=== PATIENT | female | born 1950 | race Caucasian/White ===

== ENCOUNTER 2024-02-13 22:43 | Emergency (ER) | payer MEDICARE, SELFPAY ==
[2024-02-13 22:46] VITALS: BP 169/86
[2024-02-13 23:32] VITALS: BP 171/86
[2024-02-14] VITALS: BP 158/84
[2024-02-14] MEDS: ZOFRAN 4 MG IV (00:01)
[2024-02-14] MEDS: NSS 1000 IV (00:03)
[2024-02-14 00:08] LABS: % Basophils 0.5 % (0-2); % Eosinophils 2.1 % (0-6); % Immature Granulocytes 0.3 % (0-0.5); % Monocytes 8.9 % (1.7-9.3); % Neutrophils 75.2 % (42.2-75.2); Absolute Eosinophils 0.1 10^3/uL (0-0.7); Absolute Lymphocytes 0.8 10^3/uL (1.2-3.4); Absolute Monocytes 0.6 10^3/uL (0.1-0.6); Absolute Neutrophils 4.8 10^3/uL (1.4-6.5); Hematocrit 29.8 % (37.0-47.0); Hemoglobin 10.1 g/dL (12.0-16.0); Mean Corp Hgb Conc. 33.9 g/dL (33.0-37.0); Mean Corpuscular Hgb 29.9 pg (27.0-31.0); Mean Corpuscular Volume 88.2 fL (81.0-99.0); Nucleated Red Blood Cells % 0 %; Platelet Count 164 10^3/uL (130-400); Red Blood Cell Count 3.38 10^6/uL (4.20-5.40); Red Cell Dist. Width 13.3 % (11.5-14.5); White Blood Cell Count 6.3 10^3/uL (4.8-10.8)
--- NOTE | 2024-02-14 00:18 | ED.GENMED ---
History of Present Illness
General
Chief Complaint: Abdominal Symptoms
Source: patient and family (Daughter)
Exam Limitations: none
Time Seen by Provider: 02/13/24 23:34
History of Present Illness
History of Present Illness:
3 to 4 days of myalgias aches. Flu like symptoms. This evening around 6 PM had recurrent episodes of vomiting which prompted ER evaluation. No abdominal pain. No unusual headache or other complaints.
Past History
Past History
ED Past Medical History: Negative Asthma, HTN, Hypercholesterolemia or NIDDM
ED Past Surgical History: Gynecological (Ectopic ) and Other (Eye surgery)
Social History
Tobacco: Non-smoker
Alcohol: None
Personal:
Living: with family
Review of Systems
Review of Systems
All Other Systems: Not applicable
Constitutional: Denies chills
Respiratory: Reports cough; Denies trouble breathing
Cardiac: Denies chest pain
Phy Exam
Physical Exam
Physical Exam:
GENERAL: Alert and oriented in no apparent distress
EYE: Orbits normal.
NECK: Supple, no significant adenopathy.
ENT: Pharynx without erythema
CARDIAC: Regular rate and rhythm without any obvious murmurs.
LUNGS: Clear breath sounds,normal
ABDOMEN: Soft, without focal tenderness or distention
NEUROLOGICAL: Alert and oriented , grossly non-focal
SKIN: Warm and dry, no rash or lesion, no discoloration, skin intact.
MUSCULOSKELETAL: No edema,no deformity.Good color
PSYCH: Normal and appropriate interaction.
Course
Orders/Labs/Results
Orders:
Orders
02/13/24 23:41
Electrocardiogram (*1) Stat
Reason for Study: Abdominal Pain
Cardiac Monitoring- Treatment ONCE
EKG- Treatment ONCE
IV Insert/Care/Rem.- Treatment PRN
0.9% Sodium Chloride 1000 ml [Nss] 1,000 ml IV BOLUS
Ondansetron Injectable [Zofran] 4 mg IV NOW STA
Pulse Ox/cont/shift [RESP] Stat
Quantity: 1
02/13/24 23:57
COVID-19 Antigen Urgent
Source: Nasal Swab
Complete Blood Count/With Diff Urgent
Comprehensive Metabolic Panel Urgent
Lipase Urgent
Troponin I Urgent
Influenza A+B Rapid Molecular Urgent
ARTHUR Source: Nasal Swab
Specimen Description:
02/14/24 00:36
CXR Port [CR Chest Portable - 1 View] Urgent
Comment:
Reason For Exam: cough flu pos
Reason Study Needs to be Portable: Other
02/14/24 00:46
Ketorolac [Toradol] 15 mg IV NOW STA
Potassium Chloride 10% Elixir [KCl Elixir] 40 meq PO NOW STA
02/14/24 01:25
Oseltamivir Phosphate [Tamiflu] 75 mg PO NOW STA
Abnormal Lab Results
02/13/24
23:57
RBC 3.38 L 10^6/uL
(4.20-5.40)
Hgb 10.1 L g/dL
(12.0-16.0)
Hct 29.8 L %
(37.0-47.0)
Absolute Lymphs (auto) 0.8 L 10^3/uL
(1.2-3.4)
Lymphocytes % 13.0 L %
(20.5-51.1)
Sodium 133 L mmol/L
(135-145)
Potassium 3.2 L mmol/L
(3.5-5.1)
Carbon Dioxide 21 L mmol/L
(22-30)
Glucose 115 H mg/dl
(70-99)
Calcium 7.9 L mg/dl
(8.4-10.2)
Total Protein 6.1 L g/dl
(6.3-8.2)
12/04/24 23:57
02/13/24 23:57
Vital Signs
Initial and Last Documented VS:
Initial Vital Signs
Temp Pulse Resp BP Pulse Ox
98.7 F 70 20 169/86 98
02/13/24 22:46 02/13/24 22:46 02/13/24 22:46 02/13/24 22:46 02/13/24 22:46
Last Documented Vital Signs
Temp Pulse Resp BP Pulse Ox
99.1 F 70 19 158/84 96
02/14/24 00:00 02/14/24 00:15 02/14/24 00:15 02/14/24 00:00 02/14/24 00:20
MDM/Problems Addressed
Differential Diagnosis Includes:
Patient describing viral syndrome. Clinically stable and nontoxic. Abdomen nontender. Very low suspicion for surgical abdomen. Workup in progress.
*Radiology
Radiology exam reviewed: preliminary read by ED provider (Negative)
*Pulse Oximetry
Patient hypoxic: no
*EKG
Interpreted by ED Provider?: Yes
Interpretation: abnormal
Comparison EKG: changes noted
Heart Rate: 66
Rate: normal
Rhythm: sinus
[place]: normal axis
Interval: normal interval
QRS Pattern: normal QRS
Ischemia: other (Nonspecific lateral changes)
*Critical Care Note
Total Time (30-74mins, 75-104mins- exclusive of procedures): Not Applicable
Data Reviewed
Review of Other/Old Records Reveals: Labs
Update Note
Update Note:
0125... discussed inpatient versus outpatient management. Medically stable. No respiratory distress. Pulse ox good. Abdomen nontender although does complain of mild epigastric discomfort. No vomiting here. Patient was offered admission but
they are comfortable with outpatient management. We will cover with Tamiflu for symptoms less than 2 days
ED Attending Note
-
Portions of this chart may have been created with voice recognition software.� Occasional wrong word or��sound alike� substitutions may have occurred due to the inherent limitations of voice recognition software.
Discharge Plan
Departure
Patient Disposition: Home (Routine Discharge)
Date of Disposition: 02/14/24
Time of Disposition: 01:26
Patient with high blood pressure during this ER visit?: Yes
Discharge Problem:
Influenza A, Mild hypokalemia, Recurrent vomiting
Instructions: Hypokalemia, Flu, Adult ED
Prescriptions:
New
ondansetron 4 mg tablet,disintegrating
4 mg PO TIDPRN PRN (Reason: nausea/vomiting) Qty: 14 0RF
oseltamivir [Tamiflu] 75 mg capsule
75 mg PO BID 5 Days Qty: 10 0RF
Referrals:
Dannielle Walker MD [Family Provider] - Follow up in 2-3 days
Activity Restrictions/Additional Instructions:
Your prescriptions were sent to your pharmacy
Stay well-hydrated and rest
Follow-up closely with your primary physician
Return with increased abdominal pain, recurrent vomiting, shortness of breath, persistent high fever or any other concerning symptoms
Interventions
Interventions:
*Risk Screen - Suicide Last Done: 02/13/24 22:46
*General Assessment Last Done: 02/13/24 22:46
*Neglect/Abuse Screening Last Done: 02/13/24 22:46
ED- Fall Risk Assessment Last Done: 02/14/24 00:20
*ED COVID-19 Vaccine History Last Done: 02/13/24 22:46
SB-Tfhabb-Jnywymejan Assessment Last Done: 02/13/24 23:34
Discharge Date and Time
Print Language: MAURITANIAN
[2024-02-14 00:23] LABS: ALT (SGPT) 20 U/L (0-35); AST (SGOT) 26 U/L (14-36); Albumin 3.5 g/dl (3.5-5.0); Alkaline Phosphatase 47 U/L (38-126); Blood Urea Nitrogen 11 mg/dl (7-17); Calcium 7.9 mg/dl (8.4-10.2); Carbon Dioxide 21 mmol/L (22-30); Chloride 104 mmol/L (98-107); Glucose 115 mg/dl (70-99); Lipase 102 U/L (23-300); Potassium 3.2 mmol/L (3.5-5.1); Sodium 133 mmol/L (135-145); Total Bilirubin 0.4 mg/dl (0.2-1.3); Total Protein 6.1 g/dl (6.3-8.2); eGFR > 60.00
[2024-02-14 00:28] LABS: COVID-19 Antigen Negative (Negative)
[2024-02-14 00:32] LABS: Troponin I < 0.012 ng/ml
[2024-02-14] MEDS: TORADOL 15 MG IV (00:51)
[2024-02-14] MEDS: KCL ELIXIR 40 MEQ PO (00:51)
[2024-02-14 01:00] VITALS: BP 173/89
[2024-02-14] MEDS: TAMIFLU 75 MG PO (01:37)
[2024-02-14 01:46] VITALS: BP 173/89
== END 2024-02-14 01:47 | disposition home or self-care (01) ==
LOC: EMR 22:43
PROVIDERS: EMERGENCY PHYSICIAN Emergency Medicine; FAMILY PHYSICIAN Family Medicine
DX: J10.1 Influenza due to other identified influenza virus with other respiratory manifestations (principal); E87.6 Hypokalemia; R11.10 Vomiting, unspecified; Z11.52 Encounter for screening for COVID-19
CPT/HCPCS: 99284; 96374; 96375; 96361 ×2; 71045; 80053; 83690; 84484; 85025; 87502; 87811; 93005